=== PATIENT | female | born 2000 | race Asian ===

== ENCOUNTER 2022-09-09 16:30 | Outpatient (CLI) | payer OTHER ==
[2022-09-09 20:45] LABS: BASOPHILS % (AUTO) 0.5 %; EOSINOPHILS # (AUTO) 0.2 10^3/uL (0.0-0.7); EOSINOPHILS % (AUTO) 2.1 %; HCT - HEMATOCRIT 39.8 % (37.0-47.0); HGB - HEMOGLOBIN 13.3 g/dL (12.0-16.0); LYMPHOCYTES # (AUTO) 1.8 10^3/uL (1.5-3.5); LYMPHOCYTES % (AUTO) 22.6 %; MEAN CORPUSCULAR HEMOGLOBIN 30.9 pg (27.0-31.0); MEAN CORPUSCULAR HGB CONC 33.4 g/dL (32.0-36.0); MEAN CORPUSCULAR VOLUME 92.3 fL (81.0-99.0); MEAN PLATELET VOLUME 9.3 fL (7.9-10.8); MONOCYTES # (AUTO) 0.6 10^3/uL (0.0-1.0); MONOCYTES % (AUTO) 7.5 %; NEUTROPHILS # (AUTO) 5.2 10^3/uL (1.5-6.6); PLT - PLATELET COUNT 405 10^3/uL (130-450); RED BLOOD COUNT 4.31 10^6/uL (4.20-5.40); WHITE BLOOD COUNT 7.8 x10^3/uL (4.8-10.8)
[2022-09-09 20:57] LABS: ALBUMIN 4.1 g/dL (3.2-5.5); ALBUMIN/GLOBULIN RATIO 1.1 (1.0-2.2); BILIRUBIN,TOTAL 0.6 mg/dL (0.2-1.0); CALCIUM 10.6 mg/dL (8.5-10.3); CREATININE 0.7 mg/dL (0.4-1.0); POTASSIUM 4.2 mmol/L (3.5-5.0); TOTAL PROTEIN 7.7 g/dL (6.7-8.2)
== END 2022-09-09 16:45 | disposition home or self-care (01) ==
LOC: LAB.N 16:30
PROVIDERS: ATTEND Physician Assistant Medical
DX: R10.9 Unspecified abdominal pain (principal)
CPT/HCPCS: 36415; 80053; 83690; 85025

== ENCOUNTER 2022-09-11 13:18 | Outpatient (CLI) | payer OTHER ==
--- NOTE | 2022-09-11 15:09 | XRAY Report ---
PROCEDURE: Abdomen 1 View X-Ray INDICATIONS: ABDOMINAL PAIN TECHNIQUE: One view of the abdomen acquired. COMPARISON: None FINDINGS: Surgical changes and devices: None. Bowel: Bowel gas pattern is normal. Soft tissues: No suspicious abdominal calcifications. Visualized solid organ contours appear normal in size. Bones: No suspicious bony lesions. IMPRESSION: No acute abnormality. Reviewed by: Paco Arreaga on 09/11/2022 3:07 PM [facility] Approved by: Paco Arreaga on 09/11/2022 3:07 PM [facility] Station ID: [id number]
== END 2022-09-11 13:19 | disposition home or self-care (01) ==
LOC: DI 13:18
PROVIDERS: ATTEND Physician Assistant Medical
DX: R10.9 Unspecified abdominal pain (principal)

== ENCOUNTER 2022-09-13 19:37 | Emergency (ER) | payer OTHER ==
[2022-09-13 19:52] VITALS: BP 121/67
[2022-09-13] MEDS ORDERED: TETANUS/DIPHTHERIA/PERTUSSIS 0.5 ML SYRINGE IM ONE (19:54)
[2022-09-13] MEDS ORDERED: BUFFERED LIDOCAINE 10 ML SYRINGE SUBQ STA (19:59)
--- NOTE | 2022-09-13 20:00 | ED Physician Documentation ---
PD HPI LOWER EXT INJURY - Stated complaint Stated Complaint: LT FOOT BIG TOE LAC - Chief complaint Chief Complaint: Laceration - History obtained from History obtained from: Patient - Additional information Additional information: 22-year-old with unknown tetanus status was walking in stocking feet but not shoed and stepped on a belt, and the sharp part of the belt lacerated the first Webspace of the left foot. Review of Systems Constitutional: reports: Reviewed and negative PD PAST MEDICAL HISTORY - Present Medications Home Medications: Ambulatory Orders Medication Instructions Recorded Confirmed Bcp 09/13/22 Escitalopram [Lexapro] 10 mg PO DAILY 09/13/22 09/13/22 buPROPion HCL [Bupropion Xl] 150 mg PO DAILY 09/13/22 09/13/22 - Allergies Allergies/Adverse Reactions: Allergies Allergy/AdvReac Type Severity Reaction Status Date / Time No Known Drug Allergies Allergy Verified 09/13/22 19:52 PD ED PE NORMAL - Vitals Vital signs reviewed: Yes - General General: Alert and oriented X 3, No acute distress - Extremities Extremities: Other (In between the first and second toes of the left foot, more on the side of the great toe there is a 1.5 cm laceration into subcutaneous fat without distal neurovascular compromise.) - Neuro Neuro: Alert and oriented X 3, Normal speech Results - Vitals Vitals: Vital Signs - 24 hr 09/13/22 19:48 Temperature 36.6 C Heart Rate 92 Respiratory 16 Rate Blood Pressure 121/67 O2 Saturation 97 Oxygen O2 Source Room air Procedures - Laceration (location) L foot Length in cm: 1.5 Wound type: Linear, Into subcut fat Neurovascular status: Sensory intact, Motor intact, Vascular intact Anesthesia: Lidocaine 1%, With bicarb Wound preparation: Chlorhexadine, Irrigated copiously NS Skin layer closure: Nylon, Interrupted, Size #-0 - enter number (4-0), Sutures - enter # (3) Other: Patient tolerated well, No complications, Neurovascular intact, Tetanus booster given Departure - Departure Disposition: 01 Home, Self Care Clinical Impression: Foot laceration Condition: Good Record reviewed to determine appropriate education?: Yes Instructions: ED Laceration Ext Sutr Stap Tape Comments: Come back for any signs of infection which would include: Redness, swelling, drainage, increased pain, or fevers. You can wash it soap and water. Keep it covered and moist with bacitracin ointment which is available over the counter; avoid neosporin. Follow-up with your physician in about 14 days for suture removal. Forms: Activity restrictions
== END 2022-09-13 20:32 | disposition home or self-care (01) ==
LOC: ED 19:37
DX: S91.312A Laceration without foreign body, left foot, initial encounter (principal); W26.8XXA Contact with other sharp object(s), not elsewhere classified, initial encounter; Y93.01 Activity, walking, marching and hiking
CPT/HCPCS: 12001; 90471; 99283